=== PATIENT | male | born 1960 | race Caucasian/White ===

== ENCOUNTER 2022-01-06 14:14 | Emergency (ER) | payer OTHER ==
[~2022-01-06] VITALS: Ht 175.3 cm; Wt 65.8 kg
[~2022-01-06 14:14] MED LIST: [UNRECOGNIZED DRUG - OTHER]
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
--- NOTE | 2022-01-06 15:11 | NUR ---
SAI [facility] AT BEDSIDE FOR EVAL
[2022-01-06] MEDS ORDERED: KETOROLAC TROMETHAMINE INJ 30 MG/ML VIAL ONE (17:28)
[2022-01-06] MEDS ORDERED: KETOROLAC TROMETHAMINE INJ 60 MG/2 ML VIAL IM ONE (17:30)
--- NOTE | 2022-01-06 17:39 | NUR ---
Patient discharged to home in stable condition. Written and verbal after care instructions given. Patient verbalizes understanding of instruction.
[2022-01-06 17:42] VITALS: BP 123/84
== END 2022-01-06 17:42 | disposition home or self-care (01) ==
LOC: ER 14:15
DX: S16.1XXA Strain of muscle, fascia and tendon at neck level, initial encounter (principal); S39.012A Strain of muscle, fascia and tendon of lower back, initial encounter; G44.309 Post-traumatic headache, unspecified, not intractable; R11.0 Nausea; Z87.728 Personal history of other specified (corrected) congenital malformations of nervous system and sense organs; Z86.19 Personal history of other infectious and parasitic diseases; V49.9XXA Car occupant (driver) (passenger) injured in unspecified traffic accident, initial encounter; Y93.89 Activity, other specified; Y92.89 Other specified places as the place of occurrence of the external cause; Y99.8 Other external cause status
CPT/HCPCS: 70450; 96372; 99284; J1885

== ENCOUNTER 2022-03-12 14:00 | Emergency (ER) | payer OTHER ==
[~2022-03-12] VITALS: Ht 175.3 cm; Wt 68.0 kg
--- NOTE | 2022-03-12 14:20 | NUR ---
recieved pt 61 yrs male came home c/o RT FLAnck pain 2 days with blood stang ua sent to lab
--- NOTE | 2022-03-12 14:30 | NUR ---
Seen by DR. VALDEZ BLOOD DROW AND SENT TO LAB IVF NS INFUSED AND PATENT
[2022-03-12] MEDS ORDERED: KETOROLAC TROMETHAMINE INJ 30 MG/ML VIAL IV ONE (15:00)
[2022-03-12] MEDS ORDERED: IV NS 0.9% 1,000 ML BAG IV ONE (15:00)
--- NOTE | 2022-03-12 15:00 | NUR ---
PT TO CT SCAN VIA W/C STABLE VS PAIN CONTOLED
[2022-03-12 15:02] LABS: BASOPHILS % (AUTO) 0.5 % (0.0-2.0); EOSINOPHILS % (AUTO) 0.8 % (0.0-6.0); HEMATOCRIT 46 % (39-51); HEMOGLOBIN 15.6 g/dL (13.5-17.5); LYMPHOCYTES # (AUTO) 1.2 K/uL (0.8-4.8); LYMPHOCYTES % (AUTO) 17.6 % (20.0-44.0); MEAN CORPUSCULAR HGB CONC 34 g/dl (31.0-36.0); MEAN CORPUSCULAR VOLUME 81 fL (80-96); MONOCYTES # (AUTO) 0.5 K/uL (0.1-1.30); MONOCYTES % (AUTO) 7.1 % (2.0-12.0); NEUTROPHILS # (AUTO) 4.9 K/uL (1.8-8.9); PLATELET COUNT (AUTO) 193 K/uL (150-450); WHITE BLOOD COUNT (AUTO) 6.6 K/uL (4.3-11.0)
[2022-03-12] MEDS ORDERED: KETOROLAC TROMETHAMINE INJ 30 MG/ML VIAL ONE (15:02)
--- NOTE | 2022-03-12 15:15 | NUR ---
BVACK FROM CT SCAN DONE
[2022-03-12 15:42] LABS: ALBUMIN 3.9 g/dL (3.4-5.0); BILIRUBIN,DIRECT 0.1 mg/dL (0.0-0.2); BILIRUBIN,TOTAL 0.6 mg/dL (0.2-1.0); CALCIUM, SERUM 9.5 mg/dL (8.5-10.1); CREATININE 1.2 mg/dL (0.6-1.3); POTASSIUM 3.7 mmol/L (3.5-5.1); TOTAL PROTEIN, SERUM 8.4 g/dL (6.4-8.2)
[2022-03-12 15:45] LABS: BILIRUBIN,URINE NEGATIVE (NEGATIVE); COLOR,URINE YELLOW (YELLOW); LEUKOCYTE ESTERASE ,URINE NEGATIVE (NEGATIVE); NITRITE, URINE NEGATIVE (NEGATIVE); PH,URINE 6.5 (5.0-8.0); PROTEIN,URINE NEGATIVE (NEGATIVE); UGLUCOSE NEGATIVE (NEGATIVE); UROBILINOGEN,URINE 0.2 EU/dL (0.2)
[2022-03-12 15:51] LABS: BACTERIA,URINE RARE /HPF (None Seen); RBC,URINE 81-100 /HPF (0-2); SQUAMOUS EPITHELIAL CELL,UR 0-2 /HPF (None Seen); WBC,URINE 0-2 /HPF (0-3)
--- NOTE | 2022-03-12 16:55 | NUR ---
LLLOW UP CARE D/C INSTRACTION GIVEN TO PT FULLY AND VERBLIZED UNDERSTOOD D/C HOME WITH FALLOW UP CAR
[2022-03-12 17:18] VITALS: BP 139/85
== END 2022-03-12 17:27 | disposition home or self-care (01) ==
LOC: ER 14:09
DX: R31.9 Hematuria, unspecified (principal); N28.1 Cyst of kidney, acquired; Z86.69 Personal history of other diseases of the nervous system and sense organs
CPT/HCPCS: 36415; 74176; 80048; 80076; 81001; 83690; 85025; 96374; 99285; J1885; J7030

== ENCOUNTER → 2022-03-18 | Emergency (ER) | payer OTHER ==
[~2022-03-18] VITALS: Ht 167.6 cm; Wt 72.6 kg
[~2022-03-18] MED LIST changes: +HYDR-4303 PO; +IBUP-1955 PO; +IV NS 0.9% 1,000 ML BAG IV ONE; +MORPHINE SULFATE INJ 2 MG/ML DISP.SYRIN IV ONE; +MORPHINE SULFATE INJ 2 MG/ML DISP.SYRIN ONE; +ONDA4TAB5 PO; +ONDANSETRON HCL/PF 4 MG/2 ML VIAL IVP ONE; +ONDANSETRON HCL/PF 4 MG/2 ML VIAL ONE; +TAMS-12 PO
[2022-03-18 17:28] LABS: BASOPHILS % (AUTO) 0.2 % (0.0-2.0); EOSINOPHILS % (AUTO) 0.4 % (0.0-6.0); HEMATOCRIT 44 % (39-51); HEMOGLOBIN 14.7 g/dL (13.5-17.5); LYMPHOCYTES # (AUTO) 0.9 K/uL (0.8-4.8); LYMPHOCYTES % (AUTO) 7.7 % (20.0-44.0); MEAN CORPUSCULAR HGB CONC 33 g/dl (31.0-36.0); MEAN CORPUSCULAR VOLUME 83 fL (80-96); MONOCYTES # (AUTO) 0.8 K/uL (0.1-1.30); MONOCYTES % (AUTO) 6.3 % (2.0-12.0); NEUTROPHILS # (AUTO) 10.2 K/uL (1.8-8.9); NEUTROPHILS % (AUTO) 85.4 % (43.0-81.0); PLATELET COUNT (AUTO) 158 K/uL (150-450); RED BLOOD CELL COUNT(AUTO) 5.34 MIL/uL (4.5-6.0); WHITE BLOOD COUNT (AUTO) 11.9 K/uL (4.3-11.0)
[2022-03-18 17:36] LABS: CALCIUM, SERUM 9.3 mg/dL (8.5-10.1); CREATININE 1.5 mg/dL (0.6-1.3); POTASSIUM 4.4 mmol/L (3.5-5.1)
[2022-03-18 17:42] LABS: ALBUMIN 3.7 g/dL (3.4-5.0); BILIRUBIN,DIRECT 0.1 mg/dL (0.0-0.2); BILIRUBIN,TOTAL 0.6 mg/dL (0.2-1.0); TOTAL PROTEIN, SERUM 7.9 g/dL (6.4-8.2)
[2022-03-18 17:45] LABS: BILIRUBIN,URINE NEGATIVE (NEGATIVE); COLOR,URINE YELLOW (YELLOW); LEUKOCYTE ESTERASE ,URINE TRACE (NEGATIVE); NITRITE, URINE NEGATIVE (NEGATIVE); PROTEIN,URINE NEGATIVE (NEGATIVE); UGLUCOSE NEGATIVE (NEGATIVE); UROBILINOGEN,URINE 0.2 EU/dL (0.2)
[2022-03-18 18:31] LABS: BACTERIA,URINE RARE /HPF (None Seen); RBC,URINE 81-100 /HPF (0-2); SQUAMOUS EPITHELIAL CELL,UR 0-2 /HPF (None Seen)
--- NOTE | 2022-03-18 20:01 | NUR ---
MARIO CALLAWAY ON PHONE CALL WITH DR CARROLL
--- NOTE | 2022-03-18 21:09 | NUR ---
Patient discharged to home in stable condition. RX,Written and verbal after care instructions given. Patient verbalizes understanding of instruction.IV removed. Catheter intact and site benign. Pressure and 4x4 applied to site. No bleeding noted.
[2022-03-18 21:10] VITALS: BP 133/82
== END | disposition home or self-care (01) ==
LOC: ER 16:37
DX: N13.2 Hydronephrosis with renal and ureteral calculous obstruction (principal); R10.31 Right lower quadrant pain; Z86.69 Personal history of other diseases of the nervous system and sense organs
CPT/HCPCS: 36415; 74176; 80048; 80076; 81001; 83690; 85025; 96361; 96374; 96375; 99284; J2270; J2405; J7030

== ENCOUNTER 2022-05-04 12:52 | Emergency (ER) | payer OTHER ==
[~2022-05-04] VITALS: Ht 175.3 cm; Wt 68.0 kg
[~2022-05-04 12:52] MED LIST changes: -IV NS 0.9% 1,000 ML BAG IV ONE; -MORPHINE SULFATE INJ 2 MG/ML DISP.SYRIN IV ONE; -MORPHINE SULFATE INJ 2 MG/ML DISP.SYRIN ONE; -ONDANSETRON HCL/PF 4 MG/2 ML VIAL IVP ONE; -ONDANSETRON HCL/PF 4 MG/2 ML VIAL ONE
--- NOTE | 2022-05-04 13:02 | NUR ---
THE PATIENT BIBS FOR C/O ABDOMINAL PAIN 06/02 X 10 DAYS,DENIES ACCOMPANYING SX. DENIES N/V AT THIS TIME. WILL CONTINUE TO MONITOR THE PATIENT.
--- NOTE | 2022-05-04 13:10 | NUR ---
DR VALDEZ AT BEDSIDE
--- NOTE | 2022-05-04 13:14 | NUR ---
URINE COLLECTED AND SENT TO THE LAB
--- NOTE | 2022-05-04 13:31 | NUR ---
IV LINE IS ESTABLISHED, BLOOD SPECIMEN COLLECTED AND SENT TO THE LAB. THE LINE IS SALINE LOCKED.
[2022-05-04 13:35] LABS: BILIRUBIN,URINE NEGATIVE (NEGATIVE); COLOR,URINE YELLOW (YELLOW); LEUKOCYTE ESTERASE ,URINE NEGATIVE (NEGATIVE); NITRITE, URINE NEGATIVE (NEGATIVE); PH,URINE 5.5 (5.0-8.0); PROTEIN,URINE NEGATIVE (NEGATIVE); UGLUCOSE NEGATIVE (NEGATIVE); UROBILINOGEN,URINE 0.2 EU/dL (0.2)
[2022-05-04 13:38] LABS: BACTERIA,URINE Rare /HPF (None Seen); SQUAMOUS EPITHELIAL CELL,UR Few /HPF (None Seen)
[2022-05-04 14:00] LABS: BASOPHILS % (AUTO) 0.5 % (0.0-2.0); EOSINOPHILS % (AUTO) 0.9 % (0.0-6.0); HEMATOCRIT 40 % (39-51); HEMOGLOBIN 13.2 g/dL (13.5-17.5); LYMPHOCYTES % (AUTO) 17.8 % (20.0-44.0); MEAN CORPUSCULAR HGB CONC 33 g/dl (31.0-36.0); MEAN CORPUSCULAR VOLUME 81 fL (80-96); MONOCYTES # (AUTO) 0.5 K/uL (0.1-1.30); MONOCYTES % (AUTO) 8.6 % (2.0-12.0); NEUTROPHILS % (AUTO) 72.2 % (43.0-81.0); PLATELET COUNT (AUTO) 174 K/uL (150-450); RED BLOOD CELL COUNT(AUTO) 4.88 MIL/uL (4.5-6.0); WHITE BLOOD COUNT (AUTO) 5.5 K/uL (4.3-11.0)
--- NOTE | 2022-05-04 14:20 | NUR ---
THE PATIENT IS TAKEN TO CT
--- NOTE | 2022-05-04 14:25 | NUR ---
THE PATIENT IS BACK FROM CT.
[2022-05-04 15:10] LABS: CALCIUM, SERUM 9.3 mg/dL (8.5-10.1); CREATININE 1.9 mg/dL (0.6-1.3); POTASSIUM 3.7 mmol/L (3.5-5.1)
[2022-05-04 16:23] LABS: ALBUMIN 3.6 g/dL (3.4-5.0); BILIRUBIN,DIRECT 0.1 mg/dL (0.0-0.2); BILIRUBIN,TOTAL 0.6 mg/dL (0.2-1.0); TOTAL PROTEIN, SERUM 8.3 g/dL (6.4-8.2)
[2022-05-04 17:04] VITALS: BP 134/86
--- NOTE | 2022-05-04 17:04 | NUR ---
IV removed. Catheter intact and site benign. Pressure and 4x4 applied to site. No bleeding noted.Patient discharged to home in stable condition. Written and verbal after care instructions given. Patient verbalizes understanding of instruction.
== END 2022-05-04 17:05 | disposition home or self-care (01) ==
LOC: ER 13:03
DX: N13.2 Hydronephrosis with renal and ureteral calculous obstruction (principal); N28.1 Cyst of kidney, acquired; G40.909 Epilepsy, unspecified, not intractable, without status epilepticus; Z79.899 Other long term (current) drug therapy
CPT/HCPCS: 36415; 71045-TC; 80048-TC; 80076-TC; 81001; 83690-TC; 85025-TC

== ENCOUNTER 2022-05-17 19:17 | Emergency (ER) | payer OTHER ==
[~2022-05-17] VITALS: Ht 175.3 cm; Wt 68.0 kg
--- NOTE | 2022-05-17 20:45 | NUR ---
BLOOD COLLECTED AND SENT TO LAB
[2022-05-17 20:55] LABS: BASOPHILS % (AUTO) 0.3 % (0.0-2.0); HEMATOCRIT 39 % (39-51); LYMPHOCYTES # (AUTO) 1.2 K/uL (0.8-4.8); LYMPHOCYTES % (AUTO) 14.7 % (20.0-44.0); MEAN CORPUSCULAR HGB CONC 34 g/dl (31.0-36.0); MEAN CORPUSCULAR VOLUME 82 fL (80-96); MONOCYTES # (AUTO) 0.6 K/uL (0.1-1.30); NEUTROPHILS # (AUTO) 6.3 K/uL (1.8-8.9); PLATELET COUNT (AUTO) 195 K/uL (150-450); RED BLOOD CELL COUNT(AUTO) 4.74 MIL/uL (4.5-6.0); WHITE BLOOD COUNT (AUTO) 8.2 K/uL (4.3-11.0)
--- NOTE | 2022-05-17 20:56 | NUR ---
IV LINE STARTED, RAC #[id number]
[2022-05-17 21:18] LABS: CALCIUM, SERUM 9.3 mg/dL (8.5-10.1); CHLORIDE 102 mmol/L (98-107); CREATININE 1.7 mg/dL (0.6-1.3); GLUCOSE 104 mg/dL (74-106); POTASSIUM 3.5 mmol/L (3.5-5.1); SODIUM SERUM 138 mmol/L (136-145); UREA NITROGEN, BLOOD 23 mg/dL (7-18)
[2022-05-17 21:24] LABS: CARBON DIOXIDE 26 mmol/L (21-32)
--- NOTE | 2022-05-17 23:16 | NUR ---
Patient discharged to home in stable condition. Written and verbal after care instructions given. Patient verbalizes understanding of instruction. pt ambulatory with a steady gait
[2022-05-17 23:26] VITALS: BP 140/87
== END 2022-05-17 23:16 | disposition home or self-care (01) ==
LOC: ER 19:19
DX: R07.89 Other chest pain (principal); I12.9 Hypertensive chronic kidney disease with stage 1 through stage 4 chronic kidney disease, or unspecified chronic kidney disease; N18.9 Chronic kidney disease, unspecified; G40.909 Epilepsy, unspecified, not intractable, without status epilepticus; Z79.899 Other long term (current) drug therapy
CPT/HCPCS: 36415; 71045-TC; 80048-TC; 84484-TC; 85025-TC